=== PATIENT | female | born 1955 | race Caucasian/White ===

== ENCOUNTER 2024-02-27 09:21 | Outpatient (CLI) | payer OTHER ==
[~2024-02-27 09:21] MED LIST: ELAVIL PO
== END 2024-02-27 09:29 | disposition home or self-care (01) ==
LOC: TOM 09:21
PROVIDERS: ATTEND Internal Medicine Gastroenterology
DX: C21.8 Malignant neoplasm of overlapping sites of rectum, anus and anal canal (principal)